=== PATIENT | female | born 1935 | race Caucasian/White ===

== ENCOUNTER → 2023-11-11 | Outpatient (CLI) | payer MEDICARE, OTHER ==
[~2023-11-11] MED LIST: ALBU90OI INH; LEVO750 PO
== END | disposition home or self-care (01) ==
LOC: LAB 18:34 → LAB SHORT 18:34
DX: R35.0 Frequency of micturition (principal)
CPT/HCPCS: 87077; 87086; 87186

== ENCOUNTER 2024-09-20 04:24 | Emergency (ER) | payer MEDICARE, OTHER ==
[~2024-09-20] VITALS: Ht 167.6 cm; Wt 68.0 kg
[2024-09-20] MEDS ORDERED: Fluticasone 0.05% Nasal Spray ONE (04:45)
[2024-09-20] MEDS ORDERED: Oxymetazoline 0.05% Nasal Relief Spray 15mL BTL ONE (06:15)
[2024-09-20] MEDS ORDERED: Silver Nitr/Potassium Nitrate 1 EA APPL TOP ONE (06:35)
[2024-09-20] MEDS ORDERED: Saline Nasal Spray 45 ML ONE (07:05)
[2024-09-20 08:29] VITALS: BP 161/87
== END 2024-09-20 10:45 | disposition home or self-care (01) ==
LOC: ER 04:24
DX: R04.0 Epistaxis (principal); Z87.891 Personal history of nicotine dependence; Z88.5 Allergy status to narcotic agent; Z88.4 Allergy status to anesthetic agent; Z79.01 Long term (current) use of anticoagulants; Z79.899 Other long term (current) drug therapy
CPT/HCPCS: 99283; A9270